=== PATIENT | male | born 1950 | race Caucasian/White ===

== ENCOUNTER 2017-05-05 16:44 | Emergency (ER) | payer MEDICARE, BC ==
[2017-05-05] MEDS ORDERED: DIPHTH,PERTUSS(ACELL),TET VAC 0.5 ML VIAL IM ONE ×2 (17:09→17:23)
[2017-05-05] MEDS ORDERED: LIDOCAINE HCL 20 ML VIAL ONE (17:11)
--- NOTE | 2017-05-05 18:08 | ERNOTE ---
Medical Problem HPI - Narrative Date of Service: 05/05/17 - General Chief Complaint: Laceration Time Seen by Provider: 05/05/17 16:59 Source: patient, family, RN notes reviewed Exam Limitations: no limitations - Immun/Allergies/Home Medications Immunizations: IMMUNIZATION HX Immunizations Up to Date Yes History of Influenza Vaccine No Hx Pneumococcal Vaccination No Allergies/Adverse Reactions: Allergies No Known Allergies Allergy (Verified 05/05/17 17:07) - History of Present History Narrative: 67 y/o male brought to the ED by his for a laceration to his right ring finger. He cut himself on a piece of scrap metal. He was wearing gloves at the time and did not initially realize he had cut himself. He is unsure when he last had a tetanus vaccination. Date (Duration): 05/05/17 Review of Systems - Review of Systems Constitutional: Absent: recent illness, fever, malaise EYE: Present: no symptoms reported ENT: Present: no symptoms reported Respiratory: Present: no symptoms reported Cardiology: Present: no symptoms reported Gastrointestinal/Abdominal: Present: no symptoms reported Genitourinary: Present: no symptoms reported Musculoskeletal: Absent: joint pain, joint swelling Skin: Absent: rash, lesions, lumps Neurological: Absent: weakness, numbness, tingling Endocrine: Present: no symptoms reported Hematologic/Lymphatic: Absent: easy bruising, easy bleeding Psych: Present: no symptoms reported - Patient's Past Medical History Patient History - Medical: Hypothyroidism Patient History - Cardiac/Respiratory: No pertinent hx Patient History - Cancer: No Hx of Cancer Patient History - Surgical Procedures: Noncontributory Patient History - Other: None - Social History Living Situations: home Abuse History: No History of abuse Psych History: No pertinent hx Have you smoked in the past 12 months: No Alcohol Use: none Drug Use: none - Immunizations Immunizations Up to Date: No Hx Pneumococcal Vaccination: No History of Influenza Vaccine: No Physical Exam - Physical Exam General Appearance: Present: wd/wn, alert, no apparent distress Respiratory: Present: no respiratory distress, no accessory muscle use Cardiovascular/Chest: Present: normal peripheral pulses Extremity Exam: Present: normal except - - Right 4th finger laceration, normal range of motion, no edema Neurological Exam: Present: alert, oriented, normal mood/affect, no motor/ sensory deficits Skin Exam: Present: normal color, warm/dry ED Progress - Vital Signs Patient's Vital Signs:: I have reviewed the patient's vital signs. Vital Signs: Vital Signs 05/05/17 05/05/17 16:58 17:33 Temperature 36.9 C 36.4 C L Pulse Rate 63 60 Respiratory 14 Rate Blood Pressure 163/87 O2 Sat by Pulse 96 98 Oximetry - Progress/Reassessment Chief Complaint: Laceration Progress:: Improved Procedures Right Distal Volar Finger 4th Digit Anesthesia: 1% Lidocaine I & D Prep: betadine prep, sterile drapes applied Length of Repair/Wound (cm): 3 Wound's Depth/Shape: into subcutaneous, flap, contused tissue Wound Explored: clean, to base, in bloodless field, no foreign body Wound Intervention: irrigated w/saline, debrided moderate Distal NVT: neuro/vasc intact, no tendon injury Wound Repaired With: sutures Suture Size/Type: 4-0, nylon Number of Sutures: 10 Layer Closure: Simple Wound Dressing: sterile dressing applied Complications: Pt denis procedure well Departure Clinical Impression: Finger laceration Qualifiers: Encounter type: initial encounter Finger: ring finger Damage to nail status: without damage Foreign body presence: without foreign body Laterality: right Qualified Code(s): S61.214A - Laceration without foreign body of right ring finger without damage to nail, initial encounter - Departure Disposition: Home Follow Up Needed Condition: Good Instructions: Sutured Wound Care, [id number] Additional Instructions: Keep dressing in place and dry for 24 hours You can then wash the wound with soap and water but do not soak in water for long periods of time Apply antibiotic ointment and bandage wound as needed Have sutures removed in 1 week
[2017-05-05 22:26] VITALS: BP 148/63
== END 2017-05-05 18:22 | disposition home or self-care (01) ==
LOC: ER 16:44
PROC: 0JQJ0ZZ Repair Right Hand Subcutaneous Tissue and Fascia, Open Approach (ICD-10-PCS; principal; 2017-05-05)
DX: S61.214A Laceration without foreign body of right ring finger without damage to nail, initial encounter (principal); W26.8XXA Contact with other sharp object(s), not elsewhere classified, initial encounter; Y93.H3 Activity, building and construction; Y92.9 Unspecified place or not applicable; Z23 Encounter for immunization

== ENCOUNTER 2017-05-12 07:37 | Emergency (ER) | payer MEDICARE, BC ==
[2017-05-12 07:37] VITALS: BP 148/63
== END 2017-05-12 07:58 | disposition home or self-care (01) ==
LOC: ER 07:37
DX: Z48.02 Encounter for removal of sutures (principal)

== ENCOUNTER 2017-05-13 03:18 | Emergency (ER) | payer MEDICARE, BC ==
[2017-05-13 03:25] VITALS: BP 131/87
[2017-05-13] MEDS ORDERED: SULFAMETHOXAZOLE/TRIMETHOPRIM 1 TAB TABLET PO ONE (03:42)
[2017-05-13] MEDS ORDERED: SULFAMETHOXAZOLE/TRIMETHOPRIM 1 TAB TABLET ONE (03:42)
--- NOTE | 2017-05-13 03:53 | ERNOTE ---
ENT HPI Date of Service: 05/13/17 Presenting Symptoms: other - left ear pain Time Seen by Provider: 05/13/17 03:33 Source: patient Exam Limitations: no limitations - Immun/Allergies/Home Medications Immunizations: IMMUNIZATION HX Immunizations Up to Date Yes History of Influenza Vaccine No Hx Pneumococcal Vaccination No Allergies/Adverse Reactions: Allergies Allergy/AdvReac Type Severity Reaction Status Date / Time No Known Allergies Allergy Verified 05/05/17 17:07 Home Medications: HOME MEDICATIONS Levothyroxine Sodium [Synthroid] mcg PO DAILY 05/13/17 [Last Taken Unknown] Sulfamethoxazole/Trimethoprim [Bactrim Ds] 1 tab PO BID #20 tab 05/13/17 [Last Taken Unknown] - History of Present Illness Narrative: has had ear pain for 1-2 days Severity: Present: moderate ENT Location: Present: ear (L) Prearrival Treatment: Present: no prearrival treatment Modifying Factors - Improves: Reports: nothing Modifying Factors - Worsens: Reports: nothing Associated Symptoms - ENT: Reports: denies symptoms Prior Treament: Reports: recently seen Review of Systems - Review of Systems Constitutional: Present: See HPI EYE: Present: no symptoms reported ENT: Present: ear pain, ear discharge Respiratory: Present: no symptoms reported Cardiology: Present: no symptoms reported Gastrointestinal/Abdominal: Present: no symptoms reported Genitourinary: Present: no symptoms reported Musculoskeletal: Present: no symptoms reported Skin: Present: no symptoms reported Neurological: Present: no symptoms reported Endocrine: Present: no symptoms reported Hematologic/Lymphatic: Present: no symptoms reported Psych: Present: no symptoms reported All Other Systems: All systems neg except as marked - Patient's Past Medical History Patient History - Medical: No pertinent hx, Hypothyroidism Patient History - Cardiac/Respiratory: No pertinent hx Patient History - Cancer: No Hx of Cancer Patient History - Surgical Procedures: Noncontributory Patient History - Other: None - Family History Family History:: no untoward family reactions to anesthesia, no family history of clotting disorders - Social History Living Situations: home Abuse History: No History of abuse Psych History: No pertinent hx Smoking Status: Former smoker Have you smoked in the past 12 months: No Do you dip or chew tobacco: No Alcohol Use: none Drug Use: none - Immunizations Immunizations Up to Date: Yes Hx Pneumococcal Vaccination: No History of Influenza Vaccine: No Physical Exam - Physical Exam General Appearance: Present: moderate distress Head Exam: Present: normal inspection, no evidence of injury Eye Exam: Normal inspection: bilateral, PERRL: bilateral, EOMI: bilateral Ears, Nose, Throat: Present: abnormal TM (L) Neck: Present: normal inspection, nontender Respiratory: Present: no respiratory distress, normal breath sounds, no accessory muscle use, chest nontender, lungs clear Cardiovascular/Chest: Present: regular rate, rhythm, no murmur, normal peripheral pulses Peripheral Pulses: N=norm/S=strong/W=weak/B=bound/A=absent: Carotid (R): Normal , Carotid (L): Normal, Radial (R): Normal, Radial (L): Normal, Femoral (R): Normal, Femoral (L): Normal, Dorsalis-pedis (R): Normal, Dorsalis-pedis (L): Normal Gastrointestinal/Abdominal: Present: normal bowel sounds, nontender, nondistended, soft, no organomegaly Male Genitals Exam: Present: deferred Back Exam: Present: normal inspection, normal range of motion, no vertebral tenderness Extremity Exam: Present: normal inspection, non-tender, normal range of motion, no edema DTR: N=norm/NB=norm/brisk/A=abs/DD=dull/dimin/HC=hyperactive: Bicep (R): Normal , Bicep (L): Normal, Tricep (R): Normal, Tricep (L): Normal, Knee (R): Normal, Knee (L): Normal, Ankle (R): Normal, Ankle (L): Normal Skin Exam: Present: normal color, warm/dry Lymphatic Exam: Present: no adenopathy ED Progress - Vital Signs Patient's Vital Signs:: I have reviewed the patient's vital signs. Vital Signs: Vital Signs 05/13/17 03:22 Temperature 36.4 C L Pulse Rate 57 L Respiratory 16 Rate Blood Pressure 131/87 O2 Sat by Pulse 99 Oximetry - Progress/Reassessment Chief Complaint: Earache - Transfer of Care Expected Disposition: Discharge Departure Clinical Impression: Otitis - Departure Disposition: Home self-care Condition: Fair Instructions: Otitis Media, Adult, [id number] Prescriptions: Sulfamethoxazole/Trimethoprim [Bactrim Ds] 1 tab PO BID #20 tab
== END 2017-05-13 03:56 | disposition home or self-care (01) ==
LOC: ER 03:18
DX: H66.92 Otitis media, unspecified, left ear (principal)